=== PATIENT | female | born 1960 | race African-American/Black ===

== ENCOUNTER 2017-04-15 10:28 | Emergency (ER) | payer OTHER ==
[2017-04-15 10:56] VITALS: BP 135/82; PULSE 87; RESP 16; TEMP 98.4; O2SAT 98
[2017-04-15] MEDS ORDERED: THYROID MED (10:59)
[2017-04-15] MEDS ORDERED: HTN MED (10:59)
[2017-04-15] MEDS ORDERED: CYCLOBENZAPRINE HCL 10 MG TAB PO ONE (11:00)
[2017-04-15] MEDS ORDERED: IBUPROFEN 600 MG TAB PO ONE (11:00)
--- NOTE | 2017-04-15 11:00 | PD ---
HPI Chief Complaint: Musculoskeletal Complaint Time Seen by Provider: 10:56 Travel History International Travel<30 days: No Contact w/Intl Traveler<30days: No Traveled to known affect area: No History of Present Illness HPI 56-year-old female with history of no significant past medical issues, presents to the ER today because of right upper back pains that started on its own for the past week. She states that it started a few days before she took a trip from [place] to [place]. She does not know any exacerbating or alleviating factors. She states is currently an 8 out of 10. She notices it mostly at night. She denies any fevers, coughing, nausea, vomiting, shortness of breath, or any other symptoms. She doesn't remember any injuries. Modifying Factors: None Associated Signs & Symptoms: Right upper back pain Risk Factors: None PFSH Social History Tobacco Use: No Allergies-Medications (Allergen,Severity, Reaction): Coded Allergies: No Known Allergies (Verified Allergy, Unknown, 04/15/17) Reported Meds & Prescriptions Reported Meds & Active Scripts Active Reported Levothyroxine (Levothyroxine Sodium) 50 Mcg Tab 50 Mcg PO DAILY Hydrochlorothiazide 25 Mg Tab 25 Mg PO DAILY Amlodipine (Amlodipine Besylate) 10 Mg Tab 10 Mg PO DAILY Lisinopril 20 Mg Tab 20 Mg PO DAILY Review of Systems Except as stated in HPI: all other systems reviewed are Neg Physical Exam Narrative GENERAL: Well-developed middle age female patient currently in mild distress. Awake and oriented 3.] SKIN: Focused skin assessment warm/dry. HEAD: Atraumatic. Normocephalic. EYES: Pupils equal and round. No scleral icterus. No injection or drainage. ENT: No nasal bleeding or discharge. Mucous membranes pink and moist. NECK: Trachea midline. No JVD. CARDIOVASCULAR: Regular rate and rhythm. No murmur appreciated. RESPIRATORY: No accessory muscle use. Clear to auscultation. Breath sounds equal bilaterally. GASTROINTESTINAL: Abdomen soft, non-tender, nondistended. Hepatic and splenic margins not palpable. BACK: No CVA tenderness. No rash. No point tenderness on palpation of the spine. Area pain is at the right paraspinal T10 level. No point tenderness on palpation. MUSCULOSKELETAL: No obvious deformities. No clubbing. No cyanosis. No edema. NEUROLOGICAL: Awake and alert. No obvious cranial nerve deficits. Motor grossly within normal limits. Normal speech. PSYCHIATRIC: Appropriate mood and affect; insight and judgment normal. Data Data Last Documented VS Vital Signs Date Time Temp Pulse Resp B/P Pulse Ox O2 Delivery O2 Flow Rate FiO2 04/15/17 10:56 98.4 87 16 135/82 98 Orders Chest, Pa & Lat (04/15/17 10:56) Cyclobenzaprine (Flexeril) (04/15/17 11:00) Ibuprofen (Motrin) (04/15/17 11:00) [facility] Medical Decision Making Medical Screen Exam Complete: Yes Emergency Medical Condition: Yes Medical Record Reviewed: Yes Interpretation(s) Last 24 hours Impressions Chest X-Ray 04/15/17 1056 Signed Impressions: Service Date/Time: , April 15, 2017 11:03 - CONCLUSION: No acute disease. Brandon Acosta MD Differential Diagnosis Right upper back painmusculoskeletal versus muscle spasms versus back strain versus acute pulmonary processes Narrative Course X-rays show scoliosis but no signs of acute pulmonary processes. At this point , symptoms are likely secondary to muscle spasms and chronic back pain. My plan would be to give her symptomatic relief or pain and follow-up to primary care doctor. Return for any worsening in pain, fevers, neurological symptoms, or new issues as needed. The plan has discussed with her and she states understanding. Diagnosis Primary Impression: Back pain Med/Other Pt SpecificInfo: Prescription(s) given Scripts Cyclobenzaprine (Flexeril)10 Mg Tab10 Mg PO TID #15 TAB Ref 0 Prov:Jaydon Maher MD 04/15/17 Ibuprofen (Motrin Ib)200 Mg [id number] Mg PO QID PRN (PAIN SCALE 1 TO 10) #21 Prov:Jaydon Maher MD 04/15/17 Disposition: 01 DISCHARGE HOME Condition: Stable Jaydon Maher MD Apr 15, 2017 11:00
[2017-04-15] MEDS ORDERED: LISI-515 PO (11:11)
[2017-04-15] MEDS ORDERED: AMLO10TA2 PO (11:11)
[2017-04-15] MEDS ORDERED: HYDR25TA5 PO (11:11)
[2017-04-15] MEDS ORDERED: LEVO50TA4 PO (11:11)
--- NOTE | 2017-04-15 11:22 | RADRPT ---
EXAM DATE/TIME: 04/15/2017 11:03 [facility] COMPARISON: No previous studies available for comparison. INDICATIONS : Pain in upper back radiating to front of chest. MEDICAL HISTORY : Hypertension. Thyroid disease. SURGICAL HISTORY : None. ENCOUNTER: Initial ACUITY: 4 - 6 days PAIN SCORE: 9/10 LOCATION: chest FINDINGS: PA and lateral views of the chest demonstrate the lungs to be symmetrically aerated without evidence of mass, infiltrate or effusion. The cardiomediastinal contours are unremarkable. Degenerative kaplan es and scoliosis of the thoracolumbar spine are noted. CONCLUSION: No acute disease. Brandon Acosta MD on April 15, 2017 at 11:14 Board Certified Radiologist. This report was verified electronically.
[2017-04-15] MEDS ORDERED: CYCL1TAB29 PO (11:36)
[2017-04-15] MEDS ORDERED: IBUP-1129 PO (11:36)
== END 2017-04-15 12:00 | disposition home or self-care (01) ==
LOC: PHED 10:28
DX: M54.6 Pain in thoracic spine (principal)
CPT/HCPCS: 71020; 99283